=== PATIENT | female | born 1960 | race Hispanic/Latino ===

== ENCOUNTER 2020-01-15 21:04 | Emergency (ER) | payer BC ==
[2020-01-15 21:39] LABS: Bilirubin Negative (Negative); Blood, Urine Negative (Negative); Clarity Clear (Clear); Glucose, Urine (Dipstick) Normal (Negative); Ketone, Urine Negative (Negative); Leukocyte Negative Leu/uL (Negative); Nitrite Negative (Negative); Protein, Urine (Dipstick) Negative (Neg-Trace); Specific Gravity, Urine 1.005 (1.002-1.036); pH, Urine 6.5 (5.0-9.0)
== END 2020-01-15 22:14 | disposition home or self-care (01) ==
LOC: ERS 21:04
DX: R32 Unspecified urinary incontinence (principal); R39.15 Urgency of urination; K74.60 Unspecified cirrhosis of liver; I10 Essential (primary) hypertension; Z79.899 Other long term (current) drug therapy
CPT/HCPCS: 81003; 99283

== ENCOUNTER 2020-02-17 13:43 | Observation (INO) | payer BC, OTHER ==
--- NOTE | 2020-02-17 14:22 | RAD ---
XR Chest 1 View Portable HISTORY: Altered mental status COMPARISON: 01/28/2020 FINDINGS: The heart is enlarged. Patchy airspace opacities in the lungs demonstrate interval improvem ent without complete resolution since the last exam. No pneumothoraces or pleural effusions are seen. IMPRESSION: Interval improvement since 01/28/2020
[2020-02-17 14:27] LABS: #Basophils 0.1 thou/uL (0.0-0.2); #Eosinphils 0.2 thou/uL (0.0-0.7); #Lymphocytes 1.4 thou/uL (1.20-3.40); #Monocytes 0.4 thou/uL (0.11-0.59); #Neutrophils 3.4 thou/uL (1.40-6.50); %Basophils 1.2 % (0.0-1.0); %Eosinophils 2.9 % (0.0-10.0); %Lymphocytes 25.6 % (21.0-51.0); %Monocytes 7.3 % (0.0-10.0); Hemoglobin 12.7 g/dL (12.0-16.0); Mean Corpuscular HGB CONC 33.8 g/dL (32.0-36.0); Mean Corpuscular Hemoglobin 33.5 pg (27.0-31.0); Mean Corpuscular Volume 99.2 fL (78.0-98.0); Mean Platelet Volume 10.4 fL (7.4-10.4); Platelet Count 63 thou/uL (130-400); RBC Distribution Width 14.6 % (11.5-14.5); White Blood Cell (WBC) Count 5.4 thou/uL (4.8-10.8)
[2020-02-17 14:46] LABS: ALT (SGPT) 28 U/L (8-55); AST (SGOT) 55 U/L (5-34); Albumin 3.1 g/dL (3.5-5.0); Alkaline Phosphatase 208 U/L (40-110); Anion Gap 11 mmol/L (10-20); BUN (Urea Nitrogen) 11 mg/dL (9.8-20.1); Bilirubin, Total 1.6 mg/dL (0.2-1.2); Calc. Creatinine Clearance 0 mL/min (70-130); Calcium 8.8 mg/dL (7.8-10.44); Carbon Dioxide 24 mmol/L (22-29); Chloride 106 mmol/L (98-107); Estimated GFR-MDRD Greater than 90; Globulin 4.4 g/dL (2.4-3.5); Glucose 103 mg/dL (70-105); Potassium 3.7 mmol/L (3.5-5.1); Protein, Total 7.5 g/dL (6.0-8.3); Sodium 137 mmol/L (136-145)
[2020-02-17 14:48] LABS: Platelet Morphology Comment Appears Decreased; RBC Morphology Normal
--- NOTE | 2020-02-17 15:03 | CT ---
CT BRAIN WITHOUT CONTRAST: HISTORY: Altered mental status COMPARISON: 05/06/2012 FINDINGS: No evidence of acute infarct, hemorrhage, midline shift or abnormal extra-axial fluid collections is seen. There are changes of chronic small vessel ischemic disease in the periventricular white matter. The ventricular size is appropriate and the basilar cisterns are patent. The bony calvarium i s intact. The visualized paranasal sinuses and mastoid air cells are well aerated. IMPRESSION: No CT evidence of acute intracranial process.
[2020-02-17 15:08] LABS: CKMB 2.3 ng/mL (0-6.6)
[2020-02-17] MEDS ORDERED: Aspirin Chewable 81 MG TAB ONE (15:30)
[2020-02-17] MEDS ORDERED: hydrALAZINE 20 MG/ML VIAL SLOW IVP PRN (17:42)
[2020-02-17] MEDS ORDERED: Senokot S 8.6-50 MG TAB PO PRN (17:42)
[2020-02-17] MEDS ORDERED: Bisacodyl 10 MG SUPP PR PRN (17:42)
[2020-02-17] MEDS ORDERED: Guaifenesin DM 100-10/5 ML UDCUP PO PRN (17:42)
[2020-02-17] MEDS ORDERED: Ondansetron PF 4 MG/2 ML Vial IVP PRN (17:42)
[2020-02-17] MEDS ORDERED: Acetaminophen 325 MG TAB PO PRN (17:42)
[2020-02-17 18:04] LABS: Troponin I 0.039 ng/mL (< 0.028)
--- NOTE | 2020-02-17 18:57 | HP ---
REASON FOR ADMISSION: Possible CVA. HISTORY OF PRESENTING ILLNESS: Patient gives history of having trouble swallowing from Monday. She also developed difficulty speaking and had trouble chewing from yesterday evening. Patient was saying her food was coming out. Last night, she also developed headache, vomited once. All of these symptoms were bothering her. Finally, patient made it to emergency room here. She is a right-handed person. No prior history of stroke. She has had prior history of being diagnosed with COVID on January 14 and stayed for observation one night, here in the hospital. She has been ambulating in the house from Monday. There is no specific weakness in any of the extremities. 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 CURRENT MEDICATION: 1. Omeprazole 40 mg p.o. daily. 2. Lisinopril 10 mg daily. 3. Ursodiol 500 mg twice daily. 4. Chlorzoxazone 250 mg q.6 hourly p.r.n. 5. AZO 95 mg p.r.n. ALLERGIES: NO KNOWN DRUG ALLERGIES. PERSONAL HISTORY: Does not abuse alcohol or drugs. No history of smoking. She lives alone. Has three children, all are boys. FAMILY HISTORY: Mother in her 60s from massive stroke. Father in his 80s from unknown cause. CODE STATUS: Full. REVIEW OF SYSTEMS: CONSTITUTIONAL: Negative for weight loss or gain, ability to conduct usual activities. SKIN: Negative for rash, itching. EYES: Negative for double vision, pain. ENT/MOUTH: Negative for nose bleeding, neck stiffness, pain, tenderness. CARDIOVASCULAR: Negative for palpitations, dyspnea on exertion, orthopnea. RESPIRATORY: Negative for shortness of breath, wheezing, cough, hemoptysis, fever or night sweats. GASTROINTESTINAL: Negative for poor appetite, abdominal pain, heartburn, nausea, vomiting, constipation, or diarrhea. GENITOURINARY: Negative for urgency, frequency, dysuria, nocturia. MUSCULOSKELETAL: Negative for pain, swelling. NEUROLOGIC/PSYCHIATRIC: Negative for anxiety, depression. ALLERGY/IMMUNOLOGIC: Negative for skin rash, bleeding tendency. PHYSICAL EXAMINATION: GENERAL: Patient is a 59-year-old female, who is currently not in any acute distress. VITAL SIGNS: Blood pressure 152/60, pulse 84 per minute, respiratory rate 18 per minute, temperature 98.5 degrees Fahrenheit, and saturating 95% on room air. NECK: Supple. No elevated JVD. HEENT: Eyes; extraocular muscles intact. Pupils reacting to light. Oral cavity, mucous membranes are dry. No exudates or congestion. CARDIOVASCULAR SYSTEM: S1, S2 heard. Regular rhythm. RESPIRATORY: Air entry 1+ bilateral. No rales or rhonchi. ABDOMEN: Soft. Bowel sounds heard. No tenderness, rigidity, or guarding. EXTREMITIES: No peripheral edema or calf tenderness. VASCULAR SYSTEM: Peripheral pulses 1+ bilateral. No ischemic ulcerations or gangrene. CENTRAL NERVOUS SYSTEM: Patient has drooping of her face on the right side. She also has slight dysarthria. Tongue is not deviated on protrusion. Motor system, strength, right lower extremity is 4/5. All other extremities are 5/5. Reflexes are 2+ bilateral. Babinski is downgoing. Gait is not tested. PSYCHIATRIC SYSTEM: No obvious hallucinations or delusions. LABORATORY DATA: Chest x-ray done, shows chronic airspace opacities in the lungs when compared to an x-ray done on 01/28/2020. There is slight improvement. CT brain without contrast done showed no acute intracranial process. There is chronic small-vessel ischemic change seen. Troponin I 0.03. Alk phos 208, AST 55, ALT 28, and total bilirubin 1.6. BUN 11, creatinine 0.6, and serum bicarb is 24. Electrolytes stable. White count of 5, H and H 12 and 37, platelet count is 63, has 63% neutrophils, 25% lymphocytes. EKG done, shows normal sinus rhythm at 89 beats per minute. CLINICAL IMPRESSION: Patient will be under observation on stroke unit for acute cerebrovascular accident with facial palsy, likely absent gag reflex and right lower extremity weakness with strength of 4/5. We will follow stroke evidence based protocol. She will get an MRI and echo with 2D Doppler. She will be on aspirin and Lipitor. We will switch her lisinopril to 10 mg twice daily, Protonix daily, and gentle hydration with normal saline at 80 mL/hour. Patient will be kept n.p.o. until cleared by Speech. Likely, patient can swallow. We will await Speech Therapy evaluation. She has a known history of autoimmune liver disease and also was positive for COVID. In view of this, we will place her on Eliquis 5 mg twice daily for now. We will also obtain acute phase reactants for COVID, including ferritin and CRP levels. A baseline PT/INR PTT in view of liver disease and current symptoms of stroke. Neurology consultation with Dr. Thomson will be requested as well. Job ID: [id number]
[2020-02-17 19:02] LABS: Syphilis Antibody Nonreactive (Nonreactive); Syphilis Antibody Index 0.06 S/CO (<1.00 Non-Reactive)
[2020-02-17 19:13] LABS: INR-International Normal Ratio 1.2; PTT 35.9 sec (22.9-36.1); Prothrombin Time 15.4 sec (12.0-14.7)
[2020-02-17 20:25] VITALS: BMI 36.8
[2020-02-17] MEDS ORDERED: Atorvastatin Calcium 40 MG TAB PO SCH (21:00)
[2020-02-17] MEDS: Sodium Chloride 0.9% 1,000 ML IV SCH (21:41)
[2020-02-17] MEDS: Apixaban 5 MG TAB PO SCH (21:42)
[2020-02-17] MEDS: Famotidine/PF 20 mg/2ml Vial SLOW IVP SCH (21:44)
[2020-02-17] MEDS: Lisinopril 10 MG TAB PO SCH (21:44)
[2020-02-17] MEDS ORDERED: Apixaban 5 MG TAB PO SCH (23:30)
[2020-02-18] MEDS ORDERED: Ibuprofen 200 MG TAB PO SCH (02:00)
[2020-02-18 05:27] LABS: #Eosinphils 0.1 thou/uL (0.0-0.7); #Monocytes 0.2 thou/uL (0.11-0.59); #Neutrophils 1.5 thou/uL (1.40-6.50); %Basophils 0.4 % (0.0-1.0); %Eosinophils 4.1 % (0.0-10.0); %Lymphocytes 35.1 % (21.0-51.0); %Monocytes 7.7 % (0.0-10.0); %Neutrophils 52.8 % (42.0-75.0); Mean Corpuscular HGB CONC 33.2 g/dL (32.0-36.0); Mean Corpuscular Hemoglobin 33.3 pg (27.0-31.0); Mean Platelet Volume 10.2 fL (7.4-10.4); Platelet Count 47 thou/uL (130-400); RBC Distribution Width 14.6 % (11.5-14.5); Red Blood Cell (RBC) Count 3.32 mill/uL (4.20-5.40); White Blood Cell (WBC) Count 2.9 thou/uL (4.8-10.8)
[2020-02-18 05:28] LABS: Anion Gap 9 mmol/L (10-20); BUN (Urea Nitrogen) 9 mg/dL (9.8-20.1); Calc. Creatinine Clearance 196 mL/min (70-130); Calcium 7.8 mg/dL (7.8-10.44); Carbon Dioxide 25 mmol/L (22-29); Cardiac Risk 3.7 (Less than 4.5); Chloride 109 mmol/L (98-107); Cholesterol 117 mg/dl (< 200 Desired); Estimated GFR-MDRD Greater than 90; Glucose 84 mg/dL (70-105); HDL Cholesterol 32 mg/dL (>60 Neg Risk); LDL Cholesterol, Calculated 77 mg/dL; Potassium 3.7 mmol/L (3.5-5.1); Sodium 139 mmol/L (136-145); Triglycerides 41 mg/dL (Less than 150)
[2020-02-18] MEDS ORDERED: Enoxaparin Sodium 40 MG/0.4 ML SYRINGE SC SCH (09:00)
[2020-02-18] MEDS ORDERED: Aspirin 81 mg Enteric Coated Tablet PO SCH (09:00)
[2020-02-18] MEDS: Ursodiol 300 MG CAP PO SCH ×2 (09:03→18:05)
[2020-02-18] MEDS: Lisinopril 10 MG TAB PO SCH (09:03)
[2020-02-18] MEDS: Famotidine/PF 20 mg/2ml Vial SLOW IVP SCH (09:04)
[2020-02-18] MEDS: Apixaban 5 MG TAB PO SCH (09:18)
[2020-02-18] MEDS: Sodium Chloride 0.9% 1,000 ML IV SCH (10:45)
--- NOTE | 2020-02-18 11:15 | PDOC.HOSPP ---
- Subjective Encounter Date: 02/18/20 Encounter Time: 10:15 Subjective: feels better, is talking better this morning was able to swallow pills with water this am is ambulating to bathroom in her room no sob or chest pain or fever - Objective Vital Signs & Weight: Vital Signs (12 hours) Temp Pulse Resp BP BP Pulse Ox 02/18/20 09:03 148/65 H 02/18/20 07:10 97.9 F 72 18 148/65 H 95 02/18/20 03:25 97.9 F 72 18 117/56 L 93 L 02/18/20 00:05 97.8 F 70 18 141/64 H 98 Weight Admit Weight 221 lb Weight 221 lb I&O: 02/17/20 02/18/20 02/19/20 06:59 06:59 06:59 Intake Total 820 Balance 820 Result Diagrams: 02/18/20 04:35 02/18/20 04:35 Hospitalist ROS - Medication Medications: Active Medications Generic Name Dose Route Start Last Admin Trade Name Alvaro PRN Reason Stop Dose Admin Apixaban 5 mg 02/17/20 21:00 02/18/20 09:18 Eliquis PO 5 mg BID PIPPA Administration Aspirin 81 mg 02/18/20 09:00 02/18/20 09:04 Ecotrin PO 81 mg DAILY PIPPA Administration Atorvastatin Calcium 40 mg 02/17/20 21:00 02/17/20 21:43 Lipitor PO 40 mg HS PIPPA Administration Famotidine 20 mg 02/17/20 21:00 02/18/20 09:04 Pepcid SLOW IVP 20 mg Q12HR PIPPA Administration Sodium Chloride 1,000 mls @ 80 mls/hr 02/17/20 17:45 02/18/20 10:45 Normal Saline 0.9% IV 1,000 mls .[id number] PIPPA Administration Lisinopril 10 mg 02/17/20 21:00 02/18/20 09:03 Zestril PO 10 mg BID PIPPA Administration Pantoprazole Sodium 40 mg 02/18/20 09:00 02/18/20 09:03 Protonix PO 40 mg DAILY PIPPA Administration Ursodiol 300 mg 02/18/20 08:00 02/18/20 09:03 Actigal PO 300 mg BID-WM PIPPA Administration - Exam General Appearance: awake alert Eye: PERRL, anicteric sclera ENT: no oropharyngeal lesions, moist mucosa Neck: supple, no JVD Heart: RRR, no murmur Respiratory: no wheezes, no rales Gastrointestinal: soft, non-tender, non-distended, normal bowel sounds Extremities: no cyanosis, no edema Neurological: no focal deficits Neurological - other findings: 7th nr palsy, unclear about gag reflex? Psychiatric: normal affect, A&O x 3 Hosp A/P (1) CVA (cerebral vascular accident) Code(s): I63.9 - CEREBRAL INFARCTION, UNSPECIFIED Status: Suspected (2) Facial nerve palsy Code(s): G51.0 - RIVAS'S PALSY Status: Acute (3) HTN (hypertension) Code(s): I10 - ESSENTIAL (PRIMARY) HYPERTENSION Status: Chronic Qualifiers: Hypertension type: essential hypertension Qualified Code(s): I10 - Essential (primary) hypertension (4) Cirrhosis Code(s): K74.60 - UNSPECIFIED CIRRHOSIS OF LIVER Status: Chronic Qualifiers: Hepatic cirrhosis type: unspecified hepatic cirrhosis Ascites presence: without ascites Qualified Code(s): K74.60 - Unspecified cirrhosis of liver (5) Obesity (BMI 30-39.9) Code(s): E66.9 - OBESITY, UNSPECIFIED Status: Chronic (6) chronic thrombocytopenia Status: Chronic - Plan her facial droop and swallowing are getting better, right leg weakness is better , unclear about cr nerve 9,10 status. PT/OT and speech eval, is npo currently, to advance diet as tolerated. await MRI results, neuro consult was +ve for covid in december, hence is on asp and eliquis chronic thrombocytopenia sec to autoimmune cirrhosis (per patient), watch for bleeding, may dc eliquis if no signs of cva on MRI likely dc plan home if MRI does not reveal cva
[2020-02-18 11:48] LABS: SARS-CoV-2 MS2 Positive; SARS-CoV-2 N Gene Positive; SARS-CoV-2 S Gene Positive; SARS-CoV-2 by NAA DETECTED (NotDetected); SARS-CoV-2 orf1ab Positive
--- NOTE | 2020-02-18 12:02 | MRI ---
MRI brain noncontrast HISTORY: Right-sided weakness. FINDINGS: There is no evidence of acute intracranial hemorrhage or infarct. The ventricles appear nor mal in size, shape and position. Mild chronic ischemic small vessel disease throughout the periventricular white matter of each cerebr al hemisphere. There is no mass effect or shift of midline structures. Mucous retention cyst noted at the antrum of the right maxillary sinus. IMPRESSION : No acute intracranial abnormalities are demonstrated.
--- NOTE | 2020-02-18 12:59 | CON ---
NEUROLOGY CONSULTATION DATE OF CONSULTATION: 02/18/2020 REASON FOR CONSULTATION: Possible CVA. HISTORY OF PRESENT ILLNESS: Ms. Jerri Garcia is a 59-year-old female with history significant for liver cirrhosis, hypertension, rheumatoid arthritis, presented to the emergency room with trouble swallowing, difficulty speaking since last few days According to the patient, the symptoms have been progressively worse and she also vomited once and had headache, so she decided to come to the emergency room for further evaluation. She has been prior diagnosed with COVID on January 14 and was stayed in the observation unit, one night in the hospital. Per patient, she has no shortness of breath or focal weakness or focal paresthesias, dizziness, loss of vision, or loss of consciousness associated with these symptoms. REVIEW OF SYSTEMS: All 14 systems were reviewed and were negative except the pertinent positive and negative mentioned in the HPI. PAST MEDICAL HISTORY: Autoimmune liver cirrhosis, hypertension, rheumatoid arthritis. PAST SURGICAL HISTORY: Right knee surgery, cholecystectomy, hysterectomy. HOME MEDICATIONS: 1. Omeprazole 40 mg daily. 2. Lisinopril 10 mg daily. 3. Ursodiol 500 mg twice daily. 4. Chlorzoxazone 250 mg q.6 hours p.r.n. 5. Azo 95 mg p.r.n. ALLERGIES: NO KNOWN DRUG ALLERGIES. SOCIAL HISTORY: She lives alone, has three children, has three boys. She denies smoking, alcohol, or illegal drug use. FAMILY HISTORY: Significant for stroke. - Objective Vital Signs & Weight: Vital Signs (12 hours) Temp Pulse Resp BP BP Pulse Ox 02/18/20 09:03 148/65 H 02/18/20 07:10 97.9 F 72 18 148/65 H 95 02/18/20 03:25 97.9 F 72 18 117/56 L 93 L 02/18/20 00:05 97.8 F 70 18 141/64 H 98 Weight Admit Weight 221 lb Weight 221 lb I&O: 02/17/20 02/18/20 02/19/20 06:59 06:59 06:59 Intake Total 820 Balance 820 Active Medications Generic Name Dose Route Start Last Admin Trade Name Freq PRN Reason Stop Dose Admin Apixaban 5 mg 02/17/20 21:00 02/18/20 09:18 Eliquis PO 5 mg BID PIPPA Administration Aspirin 81 mg 02/18/20 09:00 02/18/20 09:04 Ecotrin PO 81 mg DAILY PIPPA Administration Atorvastatin Calcium 40 mg 02/17/20 21:00 02/17/20 21:43 Lipitor PO 40 mg HS PIPPA Administration Famotidine 20 mg 02/17/20 21:00 02/18/20 09:04 Pepcid SLOW IVP 20 mg Q12HR PIPPA Administration Sodium Chloride 1,000 mls @ 80 mls/hr 02/17/20 17:45 02/18/20 10:45 Normal Saline 0.9% IV 1,000 mls .[id number] PIPPA Administration Lisinopril 10 mg 02/17/20 21:00 02/18/20 09:03 Zestril PO 10 mg BID PIPPA Administration Pantoprazole Sodium 40 mg 02/18/20 09:00 02/18/20 09:03 Protonix PO 40 mg DAILY PIPPA Administration Ursodiol 300 mg 02/18/20 08:00 02/18/20 09:03 Actigal PO 300 mg BID-WM PIPPA Administration - Exam General Appearance: awake alert Eye: PERRL, anicteric sclera ENT: no oropharyngeal lesions, moist mucosa Neck: supple, no JVD Heart: RRR, no murmur Respiratory: no wheezes, no rales Gastrointestinal: soft, non-tender, non-distended, normal bowel sounds Extremities: no cyanosis, no edema Neurological: Mental status, the patient is alert and oriented to person, place , and time. She has mild dysarthria. Cranial nerves 2 through 12 are intact except mild right facial droop. Motor, muscle tone and bulk are normal. Strength 5/5 in the left upper and lower extremities, 5/5 in the right upper extremity, 4+/5 in the right lower extremity. Cerebellar, finger-nose testing intact. Gait deferred due to the patient's safety reasons. DATA REVIEWED: I reviewed the CT scan, which was negative for acute intracranial process. Chest x-ray showed chronic airspace opacity in the lung. EKG showed normal sinus rhythm. MRI of the brain reviewed, which was negative for acute intracranial pathology. Hosp A/P (1) CVA (cerebral vascular accident) Code(s): I63.9 - CEREBRAL INFARCTION, UNSPECIFIED Status: Suspected (2) Facial nerve palsy Code(s): G51.0 - RIVAS'S PALSY Status: Acute (3) HTN (hypertension) Code(s): I10 - ESSENTIAL (PRIMARY) HYPERTENSION Status: Chronic Qualifiers: Hypertension type: essential hypertension Qualified Code(s): I10 - Essential (primary) hypertension (4) Cirrhosis Code(s): K74.60 - UNSPECIFIED CIRRHOSIS OF LIVER Status: Chronic Qualifiers: Hepatic cirrhosis type: unspecified hepatic cirrhosis Ascites presence: without ascites Qualified Code(s): K74.60 - Unspecified cirrhosis of liver (5) Obesity (BMI 30-39.9) Code(s): E66.9 - OBESITY, UNSPECIFIED Status: Chronic (6) chronic thrombocytopenia Status: Chronic ASSESSMENT AND PLAN: Ms. Jerri Garcia is consulted for trouble swallowing and right lower extremity weakness with right facial droop. MRI of the brain reviewed, which was negative for acute intracranial pathology. Most likely transient ischemic attack since she has comorbidities. Continue aspirin and high-intensity statin for secondary stroke prevention. Strict control of blood pressure and blood glucose. N.p.o. until cleared by Speech. Known history of autoimmune liver disease and positive for COVID, so continue Eliquis 5 mg twice daily. Neuro checks every 4 hours. Continue home medications. 2D echo and cardiac Dopplers as part of stroke workup. PT/OT/Speech. Continue medical management per Primary Team. We will continue to follow. Plan discussed in detail with the patient and during MDR rounds. Job ID: [id number] MTDD
--- NOTE | 2020-02-18 15:14 | DIS ---
DATE OF ADMISSION: 02/17/2020 DATE OF DISCHARGE: 02/18/2020 DISCHARGE DISPOSITION: Home. PRIMARY DISCHARGE DIAGNOSIS: Bailey's palsy. Initial suspicion for CVA ruled out. SECONDARY DISCHARGE DIAGNOSES: 1. History of autoimmune cirrhosis of the liver. 2. Hypertension. 3. History of rheumatoid arthritis. 4. Chronic thrombocytopenia secondary to liver disease. PROCEDURES DONE DURING HOSPITALIZATION: CT brain without contrast done on admission showed no acute intracranial abnormality. MRI brain without contrast done showed no acute intracranial abnormalities. Chest x-ray showed patchy airspace opacities in the lungs due to prior COVID-19 pneumonia. H and H of 11 and 33, platelet count 47, MCV 100. PT/INR 15.4 and 1.2, PTT 35. Total bilirubin 1.6, AST 55, ALT 28, alkaline phosphatase 208, CRP 0.84, albumin 3.1, total cholesterol 117, LDL 77, triglycerides 41, HDL 32, ferritin 88. Syphilis IgG, IgM antibody was nonreactive. COVID-19 PCR is still detected on 02/17/2020. DISCHARGE MEDICATIONS: 1. Chlorzoxazone 250 mg 4 times daily p.r.n. 2. Motrin 200 mg twice daily p.r.n. 3. Lisinopril 10 mg daily. 4. Omeprazole 40 mg daily. 5. Azo tablets daily. 6. Ursodiol 250 mg twice daily. ALLERGIES: NO KNOWN DRUG ALLERGIES. DISCHARGE PLAN: The patient to follow up with Dr. Arzola, her primary care physician in 1 week. BRIEF COURSE DURING HOSPITALIZATION: The patient initially came to ER with complaints of difficulty speaking and trouble chewing. She also vomited once with a headache. The patient also complained of right leg weakness. In view of this, the patient was admitted to stroke unit under observation for possible CVA. The patient had clinical findings of 7th nerve palsy. She had mild weakness in the right lower extremity, which appears to be chronic and her CT brain and MRI brain have not revealed any acute CVA. She remained neurologically stable and hemodynamically stable during her brief stay here. The patient is tolerating pureed diet and needs to continue the same until her 7th nerve palsy gets resolved. She was rapidly improving during her brief stay here. She is COVID positive from January 14 and has lung infiltrates secondary to it. She is on room air and not needing any supplemental oxygen. The patient is ambulating and will be shortly discharged home. She has chronic thrombocytopenia and her LDL is very low as well with history of autoimmune liver disease. In view of this, statins were not prescribed or aspirin with high risk of liver injury and bleeding. Please see a [id number] documentation for the day of discharge on [facility]. Job ID: [id number]
[2020-02-18 15:53] VITALS: TEMP 97.8
[2020-02-18 20:06] VITALS: BP 126/60
[2020-02-19 12:06] LABS: SARS-CoV-2 IgG Ab Reactive (NonReactive)
[2020-02-21 14:39] LABS: ANA Symphony (Qualitative) Negative (Negative); ANA Symphony (Quantitative) 0.2 Ratio (< 0.7 Negative); dsDNA IgG Antibody 1.6 IU/mL (<10 Negative)
--- NOTE | 2020-02-22 15:49 | EKG ---
Test Reason : Blood Pressure : / mmHG Vent. Rate : 088 BPM Atrial Rate : 088 BPM P-R Int : 136 ms QRS Dur : 088 ms QT Int : 388 ms P-R-T Axes : 028 -06 018 degrees QTc Int : 469 ms Sinus rhythm with Premature supraventricular complexes Otherwise normal ECG Confirmed by NIRMALA CANADA DO ([id number]), rewrite editor DELANO FLEMING ([id number] on 02/22/2020 3:48:58 PM Referred By: Confirmed By:NIRMALA CANADA DO
== END 2020-02-18 18:43 | disposition home or self-care (01) ==
LOC: ERS 13:43 → 2SE 17:02
PROVIDERS: ADMIT Internal Medicine; ATTEND Internal Medicine
DX: G51.0 Bell's palsy (principal); U07.1 COVID-19; J12.89 Other viral pneumonia; I10 Essential (primary) hypertension; M06.9 Rheumatoid arthritis, unspecified; K74.60 Unspecified cirrhosis of liver; D69.59 Other secondary thrombocytopenia; Z79.899 Other long term (current) drug therapy
CPT/HCPCS: 36415; 70450; 70551; 71045; 80048; 80053; 80061; 82553; 82728; 84484; 85025; 85610; 85730; 86038; 86140; 86225; 86769; 86780; 87635; 93005; 93306; 96361; 96372; 96376; G0378; S0028; U0003